=== PATIENT | female | born 1995 | race Caucasian/White ===

== ENCOUNTER → 2019-09-07 14:35 | Outpatient (BNVA) | payer SELFPAY | PROVIDERS: Family Provider Family Medicine; PCP Family Medicine; Referring Provider Family Medicine; Visit Provider Nurse Practitioner | DX: R50.9 Fever, unspecified (principal); R52 Pain, unspecified; J02.9 Acute pharyngitis, unspecified | CPT/HCPCS: 87804; 87880 ==

== ENCOUNTER → 2019-10-15 12:10 | Outpatient (BNVA) | payer OTHER, SELFPAY | PROVIDERS: Family Provider Family Medicine; PCP Family Medicine; Visit Provider Family Medicine | DX: J02.9 Acute pharyngitis, unspecified (principal) | CPT/HCPCS: 87081; 87880 ==

== ENCOUNTER 2019-11-29 04:33 | Emergency (ER) | payer OTHER, SELFPAY ==
[2019-11-29 04:40] VITALS: BP 128/88; PULSE 110; RESP 18; TEMP 36.8; O2SAT 99; BMI 39.3
[2019-11-29] MEDS: TRAMadol 50 mg Tablet PO (05:37)
--- NOTE | 2019-11-29 05:39 | W.ED.EAR ---
HPI - Ear Problem General: Chief complaint: Ear Stated complaint: ear pain Time Seen by Provider: 11/29/19 05:08 History of Present Illness: HPI Narrative: 23-year-old female who has been to urgent care twice now for her ears. She states that she has left greater than right sided ear pain, no drainage, worsening over the past week or so. She was given acetic acid drops which have not helped. No fever. No muffled hearing. No congestion or cough. MD Complaint: ear pain Location: bilateral Duration: constant Severity: severe Relieving factors: nothing Discharge from ear: no Associated symptoms: Denies no associated symptoms, fever(s) or neck pain Treatment prior to arrival: eardrops Review of Systems Const: Denies: fever or chills Eyes: Denies: change in vision, photophobia or eye discharge ENMT: Denies: throat pain, painful swallowing, swelling of lips/tongue or dental pain Card: Denies: chest pain or palpitations Resp: Denies: shortness of breath or productive cough GI: Denies: nausea or vomiting Musc: Denies: neck pain PFSH ED PFSH: Social History Smoking and tobacco status: never smoked Physical Exam Const: COMMON NORMALS: oriented x3 EXAM LIMITATIONS: altered mental status GENERAL APPEARANCE: cooperative ORIENTATION/CONSCIOUSNESS: Yes awake and Yes oriented to person HENMT: OTHER: External canal swelling and redness in both ears. No drainage. No TM perforation. No fluid behind the TM. Eye: GENERAL EYE: normal appearance of both eyes Cardio: COMMON NORMALS: regular rate and regular rhythm RATE: regular rate RHYTHM: regular rhythm HEART SOUNDS: no murmurs Neuro: COMMON NORMALS: oriented x3 SENSORIUM/ORIENTATION: Yes oriented to person Course Vital Signs: Vital signs: Vital Signs Temperature 98.3 F 11/29/19 04:40 Pulse Rate 110 H 11/29/19 04:40 Respiratory Rate 18 11/29/19 04:40 Blood Pressure 128/88 11/29/19 04:40 Pulse Oximetry 99 11/29/19 04:40 Discharge Plan Discharge Patient Disposition: Home, Self-Care Clinical Impression: Otitis externa Qualifiers: Otitis externa type: diffuse Chronicity: acute Laterality: bilateral Qualified Code(s): H60.313 - Diffuse otitis externa, bilateral Condition: Stable Prescriptions: New pmqouzev-dvuojnobm-ZV 3.5-10,000-1 mg/mL-unit/mL-% drops,suspension 4 drop EAR-BOTH Q8H 10 Days Qty: 4 RF: 0 No Action bupropion HCl [Wellbutrin XL] 300 mg tablet extended release 24 hr 300 mg PO QAM Qty: 30 RF: 2 prazosin 5 mg capsule 5 mg PO .HS Qty: 30 RF: 2 acetic acid 2 % solution 3 drop EAR-BOTH TID Qty: 15 RF: 0 Discharge Orders: Discharge Order (Routine); Ordered 11/29/19 Ordered By: Malachi Patel Referrals: Josué Cisse MD [Primary Care Provider] - 4-7 days Activity Restrictions/Additional Instructions: Return for worsening pain or drainage or fever despite treatment. Stand Alone Forms: Work/School Release Coding Level of Care Code ED Decorating Machine Operator for [facility]
[2019-11-29] MEDS: neomycin-poly-hydrocort Otic Susp 10 mL Btl 4 DROP EAR-BOTH (05:40)
[2019-11-29 06:07] VITALS: BP 131/84; PULSE 111; RESP 16; O2SAT 95
== END 2019-11-29 06:08 | disposition home or self-care (01) ==
PROVIDERS: Emergency Provider Emergency Medicine; Family Provider Family Medicine; PCP Family Medicine
DX: H60.313 Diffuse otitis externa, bilateral (principal)
CPT/HCPCS: 12345; 99281; 99283

== ENCOUNTER → 2020-04-28 15:13 | Outpatient (BNVA) | payer OTHER, SELFPAY | PROVIDERS: Family Provider Family Medicine; PCP Family Medicine; Visit Provider Internal Medicine | DX: Z20.828 Contact with and (suspected) exposure to other viral communicable diseases (principal); F40.10 Social phobia, unspecified; F43.12 Post-traumatic stress disorder, chronic; F33.2 Major depressive disorder, recurrent severe without psychotic features | CPT/HCPCS: 90834; 87635 ==

== ENCOUNTER → 2020-05-19 07:44 | Outpatient (BNVA) | payer BC, SELFPAY | PROVIDERS: Family Provider Family Medicine; PCP Family Medicine; Visit Provider Counselor Professional | DX: F33.2 Major depressive disorder, recurrent severe without psychotic features (principal); F43.12 Post-traumatic stress disorder, chronic; F40.10 Social phobia, unspecified | CPT/HCPCS: 90834 ==

== ENCOUNTER → 2020-06-07 07:56 | Outpatient (BNVA) | payer BC, SELFPAY | PROVIDERS: Family Provider Family Medicine; PCP Family Medicine; Visit Provider Psychiatry & Neurology Psychiatry | DX: F40.10 Social phobia, unspecified (principal); F43.12 Post-traumatic stress disorder, chronic; F33.2 Major depressive disorder, recurrent severe without psychotic features | CPT/HCPCS: 99213 ==

== ENCOUNTER → 2020-06-22 07:59 | Outpatient (BNVA) | payer BC, SELFPAY | PROVIDERS: Family Provider Family Medicine; PCP Family Medicine; Visit Provider Counselor Professional | DX: F33.2 Major depressive disorder, recurrent severe without psychotic features (principal); F40.10 Social phobia, unspecified; F43.12 Post-traumatic stress disorder, chronic | CPT/HCPCS: 90834; 87635 ==

== ENCOUNTER → 2020-07-05 14:30 | Outpatient (BNVA) | payer BC, SELFPAY | PROVIDERS: Family Provider Family Medicine; PCP Family Medicine; Visit Provider Family Medicine | DX: Z20.828 Contact with and (suspected) exposure to other viral communicable diseases (principal) | CPT/HCPCS: 87635 ==

== ENCOUNTER → 2020-09-05 08:10 | Outpatient (BNVA) | payer BC, MEDICAID, SELFPAY | PROVIDERS: Family Provider Family Medicine; PCP Family Medicine; Visit Provider Psychiatry & Neurology Psychiatry | DX: F43.12 Post-traumatic stress disorder, chronic (principal); F40.10 Social phobia, unspecified; F33.2 Major depressive disorder, recurrent severe without psychotic features | CPT/HCPCS: 90834; 99214 ==

== ENCOUNTER 2020-10-25 15:38 | Outpatient (CLI) | payer BC, SELFPAY ==
--- NOTE | 2020-10-25 | US_ITS ---
WS: [id number] Exam: US OB >=14 wk fetus w transvag Date/Time of Exam: 10/25/2020 12:00 AM Reason For Exam: UNSURE OF LAST MENSTRUAL PERIOD A gestational sac containing a 2.9 mm yolk sac is seen high in the endometrial cavity suggesting very early intrauterine . No pole or cardiac activity demonstrated at this time. The gesta tional sac measures about 8 mm at greatest diameter. The uterus is otherwise unremarkable. A 1.8 cm c yst is noted in the right ovary that may represent a corpus luteum cyst. A prominent left ovarian cys t is also noted which measures 4.7 cm at greatest diameter. No abnormal free fluid collection in the pelvis. Recommendations: Short-term ultrasound follow-up recommended. US/US OB >=14 wk fetus w transvag IMPRESSION: 1. A gestational sac containing a 2.9 mm yolk sac is seen high in the endometri al cavity suggesting very early intrauterine . No pole or cardia c activity demonstrated at this time. 2. 1.8 cm right ovarian cyst. 4.7 cm left ovarian cyst. 3. No adnexal mass or abnormal free fluid collection.
== END 2020-10-25 15:39 | disposition home or self-care (01) ==
PROVIDERS: PCP Family Medicine; Visit Provider Family Medicine
DX: Z36.87 Encounter for antenatal screening for uncertain dates (principal)

== ENCOUNTER → 2020-11-07 08:24 | Outpatient (BNVA) | payer BC, MEDICAID, SELFPAY | PROVIDERS: PCP Family Medicine; Visit Provider Counselor Professional | DX: F43.12 Post-traumatic stress disorder, chronic (principal); F40.10 Social phobia, unspecified; F33.2 Major depressive disorder, recurrent severe without psychotic features | CPT/HCPCS: 90832 ==

== ENCOUNTER → 2020-11-25 08:23 | Outpatient (BNVA) | payer BC, MEDICAID, SELFPAY | PROVIDERS: PCP Family Medicine; Visit Provider Counselor Professional | DX: F40.10 Social phobia, unspecified (principal); F43.12 Post-traumatic stress disorder, chronic; F33.2 Major depressive disorder, recurrent severe without psychotic features | CPT/HCPCS: 90834 ==

== ENCOUNTER → 2020-11-28 07:29 | Outpatient (BNVA) | payer BC, SELFPAY | PROVIDERS: PCP Family Medicine; Visit Provider Psychiatry & Neurology Psychiatry | DX: F43.12 Post-traumatic stress disorder, chronic (principal); F40.10 Social phobia, unspecified; F33.2 Major depressive disorder, recurrent severe without psychotic features | CPT/HCPCS: 99213 ==

== ENCOUNTER → 2021-01-24 15:05 | Outpatient (BNVA) | payer BC, SELFPAY | PROVIDERS: PCP Family Medicine; Visit Provider Nurse Practitioner | DX: M54.9 Dorsalgia, unspecified (principal); N39.0 Urinary tract infection, site not specified | CPT/HCPCS: 81000 ==

== ENCOUNTER 2021-02-18 21:38 | Outpatient (CLI) | payer BC, SELFPAY ==
[2021-02-18 21:27] VITALS: BMI 39.4
[2021-02-18 21:40] VITALS: BP 118/60; PULSE 100; RESP 16; TEMP 36
[2021-02-18] MEDS: promethazine 25 mg/mL SDV 1 mL IM (22:12)
[2021-02-18 22:13] VITALS: BP 124/83; PULSE 98
[2021-02-18 22:22] LABS: Basophils % 0.4 %; Eosinophils # 0.1 10^3/uL (0.0-0.8); Eosinophils % 0.9 %; Hematocrit 35.9 % (37.0-47.0); Hemoglobin 11.9 g/dL (11.5-15.3); Lymphocytes # 2.5 10^3/uL (0.8-4.8); Lymphocytes % 24.7 %; Mean Corpuscular HGB Conc 33.1 g/dL (30.0-36.0); Mean Corpuscular Hemoglobin 29.2 pg (28.0-34.0); Mean Platelet Volume 9.5 fL (7.4-10.4); Monocytes # 0.8 10^3/uL (0.2-0.9); Monocytes % 7.8 %; Neutrophils # 6.72 10^3/uL (1.8-7.7); Neutrophils % 65.7 %; Nucleated Red Blood Cells % 0 %; Platelet Count 292 10^3/cmm (130-400); Red Blood Count 4.08 10^6/uL (4.1-5.3); Red Cell Distribution Width 13.7 % (12.1-15.1); White Blood Count 10.2 10^3/uL (4.0-10.0)
[2021-02-18 22:28] LABS: Add Urine Culture? No; Bilirubin Urine Neg (Negative); Blood Urine Neg (Negative); Glucose Urine UA Norm (Normal); Ketones Urine Negative (Negative); Leukocyte Esterase Urine Negative (Negative); Nitrate Urine Negative (Negative); Protein Urine Neg (Negative); Specific Gravity, Urine 1.015 (1.005-1.030); Squamous Epithelial Cell Urine 0-4 /hpf (0-5); Urine Appearance Clear (CLEAR); Urine Color Yellow (Yellow); Urobilinogen Urine 1 mg/dL (Negative); pH Urine 6 (5-7)
[2021-02-18 22:37] LABS: Alanine Aminotransferase 6 U/L (0-33); Albumin Level 3.4 g/dL (3.5-5.2); Alkaline Phosphatase 100 IU/L (35-105); Anion Gap 13.5 (5-19); Aspartate Amino Transferase 11 U/L (0-32); Blood Urea Nitrogen 6 mg/dL (6-20); Calcium 8.1 mg/dL (8.5-10.5); Carbon Dioxide 22 mmol/L (22-29); Chloride 102 mmol/L (98-107); Globulin 2.9 g/dL (1.3-4.6); Glomerular Filtration Rate 196.1 mL/min (90-130); Glucose 76 mg/dL (65-115); Osmolality Calculated 274 mOsm/kg (285-295); Potassium 3.5 mmol/L (3.5-5.1); Sodium 134 mmol/L (136-145); Total Bilirubin 0.2 mg/dL (0.15-1.2); Total Protein 6.3 g/dL (6.6-8.7)
[2021-02-18 22:43] VITALS: BP 104/63; PULSE 87
[2021-02-18 22:56] VITALS: RESP 16; TEMP 36.2
[2021-02-18 22:57] VITALS: BP 104/63; PULSE 87; RESP 16; TEMP 36.2
== END 2021-02-18 22:57 | disposition home or self-care (01) ==
LOC: OPOB 21:39 → OBGYN 21:39
PROVIDERS: PCP Family Medicine; Visit Provider Family Medicine
DX: O21.9 Vomiting of pregnancy, unspecified (principal); Z3A.00 Weeks of gestation of pregnancy not specified; R42 Dizziness and giddiness
CPT/HCPCS: 36415; 80053; 81001; 85025; 96372; 99211; J2550

== ENCOUNTER 2021-05-22 15:25 | Outpatient (CLI) | payer BC, SELFPAY ==
[2021-05-22 15:43] VITALS: BP 123/82; PULSE 94
[2021-05-22 15:55] VITALS: BMI 45.8
[2021-05-22 16:00] VITALS: RESP 17; TEMP 36.7
[2021-05-22 16:09] VITALS: BP 114/81; PULSE 85
[2021-05-22 16:21] LABS: Add Urine Microscopic? YES; Bilirubin Urine Neg (Negative); Blood Urine Neg (Negative); Glucose Urine UA Norm (Normal); Ketones Urine Negative (Negative); Leukocyte Esterase Urine 2+ (Negative); Nitrate Urine Negative (Negative); Protein Urine Neg (Negative); Specific Gravity, Urine 1.015 (1.005-1.030); Urine Appearance Cloudy (CLEAR); Urine Color Yellow (Yellow); Urobilinogen Urine Norm (Negative); pH Urine 6.5 (5-7)
[2021-05-22 16:26] LABS: Add Urine Culture? No; Bacteria Urine 2+ /hpf; Squamous Epithelial Cell Urine 25-40 /hpf (0-5); WBC Urine 15-25 /hpf (0-5)
[2021-05-22 16:29] VITALS: BP 129/81; PULSE 89
--- NOTE | 2021-05-22 16:32 | PC.NURSE ---
Called in prescription to [facility]. Ceftin 250 mg twice a day for 7 days.
[2021-05-22 16:52] VITALS: BP 129/81; PULSE 89; RESP 17; TEMP 36.7
== END 2021-05-22 16:53 | disposition home or self-care (01) ==
LOC: OPOB 15:31 → OBGYN 15:36
PROVIDERS: PCP Family Medicine; Visit Provider Family Medicine
DX: O26.899 Other specified pregnancy related conditions, unspecified trimester (principal); R10.2 Pelvic and perineal pain; M54.9 Dorsalgia, unspecified
CPT/HCPCS: 59025; 81001; 99211

== ENCOUNTER 2021-06-06 09:48 | Outpatient (CLI) | payer BC, SELFPAY ==
[2021-06-06 10:00] VITALS: BMI 47.6
[2021-06-06 10:13] VITALS: BP 133/64; PULSE 100
[2021-06-06 10:33] VITALS: RESP 18; TEMP 36.5
[2021-06-06 10:40] VITALS: BP 129/87; PULSE 93
[2021-06-06 10:48] LABS: Add Urine Culture? No; Bacteria Urine 1+ /hpf; Bilirubin Urine 1+ (Negative); Blood Urine Neg (Negative); Glucose Urine UA Norm (Normal); Ketones Urine 1+ (Negative); Leukocyte Esterase Urine 1+ (Negative); Mucus Urine 3+ /hpf; Nitrate Urine Negative (Negative); Protein Urine 1+ (Negative); RBC Urine 0-4 /hpf (0-2); Specific Gravity, Urine 1.025 (1.005-1.030); Squamous Epithelial Cell Urine 25-40 /hpf (0-5); Urine Appearance SL Hazy (CLEAR); Urine Color Yellow (Yellow); Urobilinogen Urine Norm (Negative); pH Urine 5 (5-7)
[2021-06-06 11:00] VITALS: BP 120/71; PULSE 87
[2021-06-06 11:15] VITALS: BP 120/71; PULSE 87
== END 2021-06-06 11:15 | disposition home or self-care (01) ==
LOC: OPOB 09:57 → OBGYN 09:59
PROVIDERS: PCP Family Medicine; Visit Provider Family Medicine
DX: O99.891 Other specified diseases and conditions complicating pregnancy (principal); M54.9 Dorsalgia, unspecified
CPT/HCPCS: 59025; 81001; 99211

== ENCOUNTER 2021-06-08 13:50 | Outpatient (CLI) | payer BC, MEDICAID, SELFPAY ==
[2021-06-08] VITALS (15 sets, daily range): BP systolic 111–189; BP diastolic 59–117; PULSE 71–107; RESP 18; TEMP 36.3; BMI 48.3
[2021-06-08 15:15] LABS: Basophils % 0.3 %; Eosinophils # 0.1 10^3/uL (0.0-0.8); Eosinophils % 0.8 %; Hematocrit 33.1 % (37.0-47.0); Hemoglobin 10.4 g/dL (11.5-15.3); Lymphocytes # 2.3 10^3/uL (0.8-4.8); Lymphocytes % 30.6 %; Mean Corpuscular HGB Conc 31.4 g/dL (30.0-36.0); Mean Corpuscular Hemoglobin 25.1 pg (28.0-34.0); Mean Platelet Volume 10.6 fL (7.4-10.4); Monocytes # 0.7 10^3/uL (0.2-0.9); Monocytes % 9.5 %; Neutrophils % 58.1 %; Nucleated Red Blood Cells % 0 %; Platelet Count 273 10^3/cmm (130-400); Red Blood Count 4.14 10^6/uL (4.1-5.3); Red Cell Distribution Width 14.1 % (12.1-15.1); White Blood Count 7.6 10^3/uL (4.0-10.0)
[2021-06-08 15:38] LABS: Bilirubin Urine Neg (Negative); Blood Urine Neg (Negative); Glucose Urine UA Norm (Normal); Ketones Urine Negative (Negative); Leukocyte Esterase Urine Negative (Negative); Nitrate Urine Negative (Negative); Protein Urine Neg (Negative); Urine Appearance Hazy (CLEAR); Urine Color Straw (Yellow); Urobilinogen Urine Norm (Negative); pH Urine 6.5 (5-7)
[2021-06-08 15:39] LABS: Bacteria Urine 2+ /hpf; Mucus Urine TRACE /hpf
[2021-06-08 15:40] LABS: Add Urine Culture? Yes
--- NOTE | 2021-06-08 15:52 | PC.NURSE ---
1352 CALLED LAB AND SRINIVASAN FROM LAB STATED THAT THEY ARE JUST NOW PUTTING THEM IN MACHINE, TOLD HER THAT THEY WERE ORDERED STAT AND SHE JUST APOLOGIZED FOR THE DELAY AND SAID THAT THEY SHOULD BE DONE IN ABOUT 20 MINUTES.
[2021-06-08 16:08] LABS: Urine Creatinine 54 mg/dL (28-217)
[2021-06-08 16:11] LABS: Alanine Aminotransferase 10 U/L (0-33); Albumin Level 3.1 g/dL (3.5-5.2); Alkaline Phosphatase 177 IU/L (35-105); Anion Gap 15.2 (5-19); Aspartate Amino Transferase 14 U/L (0-32); Blood Urea Nitrogen 6 mg/dL (6-20); Calcium 7.9 mg/dL (8.5-10.5); Carbon Dioxide 22 mmol/L (22-29); Chloride 103 mmol/L (98-107); Globulin 2.5 g/dL (1.3-4.6); Glomerular Filtration Rate 196.1 mL/min (90-130); Glucose 75 mg/dL (65-115); Osmolality Calculated 278 mOsm/kg (285-295); Potassium 4.2 mmol/L (3.5-5.1); Sodium 136 mmol/L (136-145); Total Bilirubin 0.2 mg/dL (0.15-1.2); Total Protein 5.6 g/dL (6.6-8.7); Uric Acid 5.6 mg/dL (2.4-5.7)
[2021-06-08 16:12] LABS: UPRO/UCREAT Ratio 0.52 mg/mg CR; Urine Protein Random 28 mg/dL
== END 2021-06-08 16:40 | disposition home or self-care (01) ==
LOC: OPOB 13:57 → OBGYN 14:02
PROVIDERS: PCP Family Medicine; Visit Provider Family Medicine
DX: O99.891 Other specified diseases and conditions complicating pregnancy (principal); M54.9 Dorsalgia, unspecified
CPT/HCPCS: 36415; 59025; 80053; 81001; 82570; 84156; 84550; 85025; 87086; 99211

== ENCOUNTER 2021-06-09 17:59 | Outpatient (CLI) | payer BC, MEDICAID, SELFPAY ==
[2021-06-09 19:12] LABS: Total Volume, Urine 2350 mL
== END 2021-06-09 18:00 | disposition home or self-care (01) ==
PROVIDERS: PCP Family Medicine; Visit Provider Family Medicine
DX: Z01.89 Encounter for other specified special examinations (principal)
CPT/HCPCS: 84156

== ENCOUNTER 2021-06-09 21:47 | Inpatient (IN) | payer BC, MEDICAID, SELFPAY ==
[2021-06-09] VITALS (9 sets, daily range): BP systolic 125–137; BP diastolic 78–94; PULSE 90–117; TEMP 36.8; BMI 48.2
[2021-06-09 23:07] LABS: Basophils % 0.4 %; Eosinophils # 0.1 10^3/uL (0.0-0.8); Eosinophils % 1.1 %; Hematocrit 32.9 % (37.0-47.0); Hemoglobin 10.4 g/dL (11.5-15.3); Lymphocytes # 2.8 10^3/uL (0.8-4.8); Lymphocytes % 32.7 %; Mean Corpuscular HGB Conc 31.6 g/dL (30.0-36.0); Mean Corpuscular Hemoglobin 24.7 pg (28.0-34.0); Mean Corpuscular Volume 78.1 fl (81-99); Mean Platelet Volume 10.5 fL (7.4-10.4); Monocytes # 0.7 10^3/uL (0.2-0.9); Monocytes % 8.6 %; Neutrophils # 4.84 10^3/uL (1.8-7.7); Neutrophils % 56.7 %; Nucleated Red Blood Cells % 0 %; Platelet Count 287 10^3/cmm (130-400); Red Blood Count 4.21 10^6/uL (4.1-5.3); Red Cell Distribution Width 14.4 % (12.1-15.1); White Blood Count 8.5 10^3/uL (4.0-10.0)
[2021-06-09] MEDS: dextrose 5%-lactated ringers 1,000 ML 100 ML IV (23:24)
[2021-06-09] MEDS: magnesium sulfate premix 2 GM/50 ML PIGGYBACK IV (23:29)
[2021-06-09] MEDS: magnesium sulfate premix 20 GM/500 ML BAG IV (23:36)
[2021-06-10] VITALS (84 sets, daily range): BP systolic 112–183; BP diastolic 60–105; PULSE 68–122; RESP 16–19; TEMP 36.6
[2021-06-10] MEDS: miSOPROStol 100 mcg tablet 25 MCG VAGINAL (00:07)
[2021-06-10 04:17] LABS: Magnesium Level (OB Only) 2.8 mg/dL (5.0-7.5)
[2021-06-10] MEDS: oxytocin 30 UNIT/500 ML BAG IV (04:37)
[2021-06-10] MEDS: fentaNYL 50 mcg/mL INJ 2mL IVP ×6 (04:50→16:46)
--- NOTE | 2021-06-10 08:53 | PM.OPHPUD ---
Labor & Delivery H&P Update Date of Procedure: June 10, 2021 Date H&P Performed: 06/09/21 H&P update information: I have reviewed H&P completed within last 30 days and I have examined patient prior to procedure Changes to previous documentation: The patient returned her 24 hour urine test last evening and the total protein was greater than 500. For that reason she was called to come in to the OB department. She was started on Magnesium intavenously and given misoprostel 25mcg intravaginally. Benefits and risks were discussed with the patient in the office yesterday and permit form was signed. She had dilated to 4cm with irregular contractions and therefore IV pitocin was started. She is getting uncomfortable but does not want epidural anesthesia at this time. Her blood pressure is stable and she has trace to 1+ pitting edema in lower extremities. Admission Diagnosis: Primary indication for procedure: Preeclampsia Planned procedure: Induction of labor while on Magnesium Sulfate intravenously for protection.
[2021-06-10] MEDS: dextrose 5%-lactated ringers 1,000 ML 80 ML IV ×2 (09:26→21:23)
[2021-06-10 10:25] LABS: Magnesium Level (OB Only) 3.5 mg/dL (5.0-7.5)
[2021-06-10 16:46] LABS: Magnesium Level (OB Only) 3.8 mg/dL (5.0-7.5)
[2021-06-10] MEDS: magnesium sulfate premix 20 GM/500 ML BAG IV (19:16)
--- NOTE | 2021-06-10 20:11 | P.PCNOB_ITS ---
Delivery Note: Date of delivery: June 10, 2021 Pre-Delivery Course: This 25-year-old patient was followed by this physician throughout her course without significant problems or concerns. Her EDC was 06/27/2021. Maternal blood type was O+ with antibody screen negative. Rubella was immune and group B strep was negative. Covid test was done the day prior to admission and results are unknown. The patient was found to have a slightly elevated blood pressure at the OB department the day prior to the evening of admission. She was given instructions on 24-hour urine collection and returned the 24-hour urine collection to the hospital yesterday evening where it was found that she had greater than 500 g of protein in her urine and therefore she was called and asked to come in for admission for induction of labor and magnesium. She really has not had any terribly high blood pressures. She has had mild with trace to 1+ edema in the lower extremities. No significant headaches or visual symptoms or other problems associated with preeclampsia. The remainder of the laboratory work-up for preeclampsia was negative. Delivery: The patient arrived to [facility] labor and delivery yesterda y evening for induction. She was given misoprostel 25 mcg x 1 dose and began valarie and making cervical change. Around 4:30 AM she was found to be 4 cm dilated and therefore she was not given a second dose of misoprostel and was given Pitocin. The Pitocin was titrated up throughout the day and she finally dropped down to -2 station from -4 station and the infant's head was pretty well applied at 6 cm dilated and underwent artificial rupture membranes. There was a large amount of clear fluid obtained and she began valarie harder and making cervical change. She finally dilated complete cervical dilatation and was able to deliver by spontaneous vaginal delivery a healthy, viable male infant at 1951. The mouth and nose were suctioned at the perineum followed by delivery of the remainder of the infant. She pushed for 4 minutes prior to delivery. The infant was placed on the mother's abdomen where after approximately 1 minute the umbilical cord was cut by the 's father. The umbilical cord had 3 blood vessels and there was no nuchal cord. The placenta delivered spontaneously at 1954. There is no episiotomy and a couple of small first-degree periurethral lacerations and a very small perineal laceration which was first-degree and none of those required repair. The weighed 7 pound 8 ounces with Apgars of 8 and 9 at 1 and 5 minutes respectively. Estimated blood loss approximate 312 mL. She was 37-4/7 weeks gestation at time of delivery. There were no complications and presently mother and infant are doing well. Post-Delivery Status: Patient is doing well at this time and will be followed for routine postdelivery care. We will continue pantoprazole as she was on omeprazole at home. We will continue magnesium for around 24 hours prior to discontinuing. We will adjust orders as necessary. A&P Assessment and plan (1) Preeclampsia: Patient had mild symptoms of preeclampsia but did have proteinuria consistent with preeclampsia. She was induced secondary to the preeclampsia will be followed with magnesium at least 24 hours prior to discontinuing. Status: Acute (2) Normal spontaneous vaginal delivery: Patient did very well with spontaneous vaginal livery with no anesthesia. She will be followed for routine postdelivery care. Status: Acute Coding Level of Care Code Acute Pathology Laboratory Technologist for [facility] Diagnoses Preeclampsia O14.90 Normal spontaneous vaginal delivery O80
[2021-06-10] MEDS: oxyCODONE-APAP 5-325 mg Tablet 1 TAB PO (20:32)
[2021-06-10] MEDS: ibuprofen 800 mg tablet PO (21:23)
[2021-06-11] VITALS (22 sets, daily range): BP systolic 121–156; BP diastolic 68–91; PULSE 83–129; RESP 16; TEMP 36.6–37.2
[2021-06-11] MEDS: lanolin oint 7 gm 1 APPLIC TOPICAL (00:24)
[2021-06-11] MEDS: oxyCODONE-APAP 5-325 mg Tablet 1 TAB PO ×4 (00:27→19:09)
[2021-06-11 01:23] LABS: Magnesium Level (OB Only) 3.5 mg/dL (5.0-7.5)
[2021-06-11 05:47] LABS: Magnesium Level (OB Only) 3.6 mg/dL (5.0-7.5)
[2021-06-11] MEDS: ibuprofen 800 mg tablet PO ×2 (08:58→15:49)
[2021-06-11] MEDS: docusate sodium 100 mg Capsule PO ×2 (08:58→19:10)
[2021-06-11] MEDS: prenatal vitamin Capsule 1 CAP PO (08:58)
[2021-06-11] MEDS: pantoprazole DR 40 mg Tablet PO (08:59)
[2021-06-11] MEDS: dextrose 5%-lactated ringers 1,000 ML 80 ML IV (08:59)
[2021-06-11 12:25] LABS: Hematocrit 26.6 % (37.0-47.0); Hemoglobin 8.5 g/dL (11.5-15.3); Mean Corpuscular Hemoglobin 25.2 pg (28.0-34.0); Mean Corpuscular Volume 78.9 fl (81-99); Mean Platelet Volume 9.9 fL (7.4-10.4); Platelet Count 273 10^3/cmm (130-400); Red Blood Count 3.37 10^6/uL (4.1-5.3); Red Cell Distribution Width 14.5 % (12.1-15.1); White Blood Count 12.1 10^3/uL (4.0-10.0)
[2021-06-11 13:04] LABS: Magnesium Level (OB Only) 3.5 mg/dL (5.0-7.5)
--- NOTE | 2021-06-11 14:02 | PM.OBGYDC ---
Discharge Providers 911 TELECOMMUNICATOR Date of Admission: 06/09/21 21:47 Date of Discharge: 06/11/21 Attending Provider at Admission: Josué Cisse MD Attending Provider at Discharge: Josué Cisse MD Primary Care Provider: Baldomero Magaña MD Diagnoses at Discharge Discharge Diagnosis (1) Preeclampsia: Status: Acute (2) Normal spontaneous vaginal delivery: Status: Acute Reason for Visit Reason for Visit: induction of labor Hospital Course Hospital Course Patient was admitted for induction of labor secondary to preeclampsia. There were no significant symptoms of preeclampsia but she did have significant proteinuria and borderline blood pressures. She was admitted and placed on magnesium and given misoprostel followed by Pitocin augmentation. She slowly dilated to complete cervical dilatation and delivered by spontaneous vaginal delivery with no anesthesia this healthy viable male infant. There was no lacerations and she has done well . She presently is on magnesium and at 24 hours , as long as she is having no blood pressure problems or other issues she will be allowed to go home. She is having minimal to mild lochia and the is breast-feeding very well. She is ambulating well and tolerating a regular diet. Information Peripartum Data: Delivery Method: Vaginal Physical Exam Const: COMMON NORMALS: no acute distress and healthy appearing GENERAL APPEARANCE: cooperative, comfortable and well kempt NUTRITIONAL APPEARANCE: overweight HENMT: COMMON NORMALS: moist oral mucous membranes Resp: COMMON NORMALS: normal respiratory effort, No retractions, No use of accessory muscles and clear to auscultation bilaterally AUSCULTATION: clear to auscultation bilaterally Cardio: COMMON NORMALS: regular rate and regular rhythm RATE: regular rate RHYTHM: regular rhythm GI: COMMON NORMALS: Normal to inspection, nondistended, normoactive bowel sounds present, Soft to palpation and non-tender (Fundus is firm and well below the umbilicus.) PALPATION: Yes Soft to palpation : COMMON NORMALS: Yes no CVA tenderness BLADDER/KIDNEY EXAM: Yes no CVA tenderness Back/Pelvis: COMMON NORMALS: no CVA tenderness Extremity: COMMON NORMALS: normal to inspection, full ROM, capillary refill normal and no calf tenderness; negative for no pedal edema (Trace edema in the lower extremities.) Psych: APPEARANCE: Yes well kempt Urinary Catheter Management^: Carver Latex: Cath Placed During This Visit: yes, but has since been removed by the nurse Reason for Continuing Indwelling Catheter: Decision to DC Catheter Urinary Catheter Date of Insertion: 06/11/21 Urinary Catheter Time of Insertion: 22:00 Date Urinary Catheter Removed: 06/10/21 Time Urinary Catheter Discontinued: 18:13 Discharge Data Data Completed and Pending: Pending at discharge Category Date Time Status Magnesium Level ( OB Only) Q6H Lab 06/11/21 16:36 Uncollected Magnesium Level ( OB Only) Q6H Lab 06/11/21 22:36 Uncollected Labs from last 24 hours 06/11/21 06/11/21 06/11/21 12:00 12:00 05:05 WBC 12.1 H RBC 3.37 L Hgb 8.5 L Hct 26.6 L MCV 78.9 L MCH 25.2 L MCHC 32.0 RDW 14.5 Plt Count 273 MPV 9.9 Magnesium 3.5 L* 3.6 L* 06/11/21 06/10/21 00:06 15:48 WBC RBC Hgb Hct MCV MCH MCHC RDW Plt Count MPV Magnesium 3.5 L* 3.8 L* Vitals: Last Vital Signs Temp 98.0 F 06/11/21 10:42 Pulse 121 H 06/11/21 10:37 Resp 16 06/11/21 12:51 BP 135/83 06/11/21 10:37 Discharge Plan Discharge Patient Disposition: Home Condition: Stable Prescriptions: New docusate sodium 100 mg Capsule 100 mg PO BID Qty: 60 RF: 1 ibuprofen 800 mg Tablet 800 mg PO TID Qty: 90 RF: 2 Continued prenat.vits,hawa,[id number] Tablet 1 tab PO DAILY RF: 0 omeprazole 20 mg capsule,delayed release(DR/EC) 20 mg PO BID RF: 0 acetaminophen [Tylenol] 325 mg Capsule 1,000 mg PO BID PRN (Reason: Back Pain) RF: 0 Referrals: Josué Cisse MD [Physician] - 6 Weeks (Please call [facility]ven[facility] Bowers Saturday morning to schedule your 6 week visit.) Discharge Diet: Usual diet Discharge Activity: Resume usual activity Patient Instructions: Depression (DC), Expression, Collection and Storage of Breast Milk (DC), Bleeding (DC), Preeclampsia and Eclampsia After Delivery (GEN), OB Discharge Report, OB Food/Drug Interaction Guide, OB Care at Home, Opioid Safety, OB Vaginal Deliveries Discharge Attestations 911 TELECOMMUNICATOR Time Spent in Discharge Care*: less than 30 min Specific Discharge Activities: Specific discharge activities: educating patient, documenting/other paperwork and evaluating patient/reviewing data Coding Level of Care Code Acute Charging Board Operator for [facility] Fwd Exam Detailed Diagnoses Preeclampsia O14.90 Normal spontaneous vaginal delivery O80
--- NOTE | 2021-06-11 15:00 | PC.NURSE ---
indwelling mendieta catheter removed at this time. 10mL normal saline removed from mendieta bulb, mendieta intact. Pt tolerated well.
[2021-06-11] MEDS: benzocaine-menthol 78 gm Canister 1 SPRAY TOPICAL (15:50)
[2021-06-11] MEDS: magnesium sulfate premix 20 GM/500 ML BAG IV (16:15)
== END 2021-06-11 21:58 | disposition home or self-care (01) | DRG 807 ==
LOC: OPOB 21:49 → OBGYN 21:50 → OPOB 06-10 17:25 → OBGYN 06-10 17:25
PROVIDERS: Admitting Provider Family Medicine; PCP Family Medicine; Visit Provider Family Medicine
DX: O14.04 Mild to moderate pre-eclampsia, complicating childbirth (principal); Z37.0 Single live birth; Z3A.37 37 weeks gestation of pregnancy
CPT/HCPCS: 36415; 51702; 59025; 59409; 83735; 85025; 85027; J3010; J3475

== ENCOUNTER → 2022-01-16 14:10 | Outpatient (BNVA) | payer BC, MEDICAID, SELFPAY | PROVIDERS: PCP Nurse Practitioner Family; Visit Provider Clinical Nurse Specialist Adult Health | DX: R53.83 Other fatigue (principal) | CPT/HCPCS: 80053; 81000; 84443; 85025; 87086 ==

== ENCOUNTER → 2022-06-11 09:51 | Outpatient (BNVA) | payer BC, MEDICAID, SELFPAY | PROVIDERS: PCP Clinical Nurse Specialist Adult Health; Visit Provider Clinical Nurse Specialist Adult Health | DX: E16.2 Hypoglycemia, unspecified (principal); F33.2 Major depressive disorder, recurrent severe without psychotic features; E66.01 Morbid (severe) obesity due to excess calories; Z68.41 Body mass index [BMI] 40.0-44.9, adult | CPT/HCPCS: 80048; 83036 ==

== ENCOUNTER → 2023-02-28 12:02 | Outpatient (BNVA) | payer BC, SELFPAY | PROVIDERS: PCP Clinical Nurse Specialist Adult Health; Visit Provider Nurse Practitioner Family | DX: Z34.90 Encounter for supervision of normal pregnancy, unspecified, unspecified trimester (principal) | CPT/HCPCS: 81025 ==

== ENCOUNTER → 2023-05-16 11:29 | Outpatient (BNVA) | payer BC, SELFPAY | PROVIDERS: PCP Clinical Nurse Specialist Adult Health; Visit Provider Registered Nurse Neonatal Intensive Care | DX: R05.9 Cough, unspecified (principal); B34.9 Viral infection, unspecified | CPT/HCPCS: 87400 ==

== ENCOUNTER → 2023-10-10 08:29 | Outpatient (BNVA) | payer BC, SELFPAY | PROVIDERS: PCP Clinical Nurse Specialist Adult Health; Visit Provider Clinical Nurse Specialist Adult Health | DX: R20.0 Anesthesia of skin (principal) | CPT/HCPCS: 80053; 82306; 82607; 83036; 84439; 84443; 85025 ==

== ENCOUNTER → 2023-10-21 11:01 | Outpatient (BNVA) | payer BC, SELFPAY | PROVIDERS: PCP Clinical Nurse Specialist Adult Health; Visit Provider Clinical Nurse Specialist Adult Health | DX: R71.8 Other abnormality of red blood cells (principal) | CPT/HCPCS: 82728; 83540; 83550 ==

== ENCOUNTER → 2023-12-04 15:57 | Outpatient (BNVA) | payer BC, SELFPAY | PROVIDERS: PCP Clinical Nurse Specialist Adult Health; Visit Provider Clinical Nurse Specialist Adult Health | DX: R79.89 Other specified abnormal findings of blood chemistry (principal); E55.9 Vitamin D deficiency, unspecified | CPT/HCPCS: 82306; 84439; 84443 ==

== ENCOUNTER → 2024-07-13 09:08 | Outpatient (BNVA) | payer BC, SELFPAY | PROVIDERS: PCP Clinical Nurse Specialist Adult Health | DX: Z20.822 Contact with and (suspected) exposure to COVID-19 (principal) | CPT/HCPCS: 87426 ==

== ENCOUNTER → 2024-08-18 08:53 | Outpatient (BNVA) | payer BC, SELFPAY | PROVIDERS: PCP Clinical Nurse Specialist Adult Health | DX: R50.9 Fever, unspecified (principal) | CPT/HCPCS: 87400 ==